=== PATIENT | male | born 2000 | race African-American/Black ===

== ENCOUNTER 2020-09-23 15:13 | Emergency (ER) | payer SELFPAY ==
[~2020-09-23] VITALS: Ht 172.7 cm; Wt 75.0 kg
[2020-09-23 16:39] VITALS: BP 128/62
== END 2020-09-23 18:55 | disposition left against medical advice (07) ==
LOC: ER 15:13
DX: Z53.21 Procedure and treatment not carried out due to patient leaving prior to being seen by health care provider (principal)